=== PATIENT | female | born 1960 | race African-American/Black ===

== ENCOUNTER 2017-12-23 21:44 | Emergency (ER) | payer MEDICARE, OTHER ==
[2017-12-23] MEDS: oxyCODONE/APAP 5/325 1 TAB TABLET PO (22:04)
== END 2017-12-23 23:10 | disposition home or self-care (01) ==
LOC: ER 21:44
DX: I10 Essential (primary) hypertension (principal); Z86.73 Personal history of transient ischemic attack (TIA), and cerebral infarction without residual deficits; Z88.2 Allergy status to sulfonamides; S93.401A Sprain of unspecified ligament of right ankle, initial encounter; W18.49XA Other slipping, tripping and stumbling without falling, initial encounter; Y93.9 Activity, unspecified; Y99.8 Other external cause status; Y92.89 Other specified places as the place of occurrence of the external cause
CPT/HCPCS: 29515; 73610; 73630; 99284-25